=== PATIENT | female | born 1990 | race Caucasian/White ===

== ENCOUNTER 2018-03-01 03:29 | Inpatient (IN) | payer BC ==
[2018-03-01] MEDS ORDERED: Ondansetron PF 4 MG/2 ML Vial IVP PRN ×3 (05:50→08:47)
[2018-03-01] MEDS ORDERED: Bicitra 30 ML UDCUP PO SCH (05:50)
[2018-03-01] MEDS ORDERED: CEFAZOLIN/Water 2 GM/20 ML SYRINGE SLOW IVP SCH (05:50)
[2018-03-01] MEDS ORDERED: Butorphanol Tartrate 1 MG/ML VIAL SLOW IVP PRN ×2 (05:50→20:30)
[2018-03-01] MEDS ORDERED: Promethazine HCl 25 MG/ML VIAL IM PRN ×2 (05:50→08:22)
[2018-03-01] MEDS: Lactated Ringer's 1,000 ML IV SCH ×2 (06:10→07:23)
[2018-03-01] MEDS ORDERED: Oxytocin 10 UNITS/ML VIAL ONE ×3 (06:18→08:14)
[2018-03-01] MEDS ORDERED: Morphine PF 1 MG/ML SYR ONE (06:19)
[2018-03-01] MEDS ORDERED: ePHEDrine/0.9% NaCl/PF SYRINGE 50 mg/10 ml ONE (06:19)
[2018-03-01] MEDS ORDERED: Ondansetron PF 4 MG/2 ML Vial ONE (06:20)
[2018-03-01] MEDS ORDERED: PHENYLEPHRINE-NS 100 MCG/ML 10 ML SYRINGE ONE ×2 (06:21→06:42)
[2018-03-01] MEDS ORDERED: Ketorolac Tromethamine 30 MG/ML VIAL ONE (06:21)
[2018-03-01 06:22] VITALS: BMI 45.7
[2018-03-01 06:23] LABS: Hemoglobin 11.9 g/dL (12.0-16.0); Mean Corpuscular HGB CONC 34.3 g/dL (32.0-36.0); Mean Corpuscular Hemoglobin 29.8 pg (27.0-31.0); Mean Platelet Volume 7.7 fL (7.4-10.4); Platelet Count 248 thou/uL (130-400); RBC Distribution Width 16.2 % (11.5-14.5); Red Blood Cell (RBC) Count 3.98 mill/uL (4.20-5.40); White Blood Cell (WBC) Count 7.4 thou/uL (4.8-10.8)
[2018-03-01 06:58] LABS: Hep B Surf Ag Non-Reactive S/CO (NonReactive)
[2018-03-01 06:59] LABS: Syphilis Antibody Nonreactive (Nonreactive); Syphilis Antibody Index 0.02 S/CO (<1.00 Non-Reactive)
[2018-03-01] MEDS ORDERED: CEFAZOLIN 2 GM/50 ML-DEXTROSE 2 GM in Premix Bag 1 BAG IVPB SCH (07:15)
[2018-03-01] MEDS ORDERED: Meperidine HCl/PF 25 MG/ML VIAL SLOW IVP PRN (08:22)
[2018-03-01] MEDS ORDERED: diphenhydrAMINE 50 MG/ML VIAL IVP PRN (08:22)
[2018-03-01] MEDS ORDERED: L&D-Morphine 4 MG/ML VIAL SLOW IVP PRN (08:22)
[2018-03-01] MEDS ORDERED: Eucerin (Mineral Oil/Petrolatum,White) 30 gm Jar TOP PRN (08:22)
[2018-03-01] MEDS ORDERED: Ondansetron HCl/PF 4 MG/2 ML Vial IVP PRN (08:22)
[2018-03-01] MEDS ORDERED: Promethazine HCl 25 MG SUPP PR PRN (08:22)
[2018-03-01] MEDS ORDERED: Naloxone HCl 0.4 mg/ml Vial IV PRN (08:22)
[2018-03-01] MEDS ORDERED: Naloxone HCl 0.4 mg/ml Vial IVP PRN ×2 (08:22)
[2018-03-01] MEDS ORDERED: Communication Order-Pharmacy FS SCH (08:30)
[2018-03-01] MEDS ORDERED: diphenhydrAMINE 25 MG CAP PO PRN (08:47)
[2018-03-01] MEDS ORDERED: Bisacodyl 10 MG SUPP PR PRN (08:47)
[2018-03-01] MEDS ORDERED: Simethicone Chewable 80 MG TAB PO PRN (08:47)
[2018-03-01] MEDS ORDERED: Zolpidem Tartrate 5 MG TAB PO PRN (08:47)
[2018-03-01] MEDS ORDERED: Acetaminophen 325 MG TAB PO PRN (08:47)
[2018-03-01] MEDS ORDERED: Misoprostol 200 MCG TAB PR PRN (08:47)
[2018-03-01] MEDS ORDERED: Adacel (T-DAP) 0.5 ML SYRINGE IM ONE (08:47)
[2018-03-01] MEDS ORDERED: Lanolin Ointment 7 GM TUBE TOP PRN (08:47)
[2018-03-01] MEDS ORDERED: Lactated Ringer's 1,000 ML IV SCH (09:00)
[2018-03-01] MEDS ORDERED: NS / Oxytocin 40 units/1000ml 1,000 ML IV SCH (09:00)
[2018-03-01] MEDS: Docusate Calcium (SURFAK) 240 MG CAP PO SCH ×2 (13:11→21:33)
[2018-03-01] MEDS: Ferrous Sulfate 325 MG TAB PO SCH (13:11)
[2018-03-01] MEDS: Prenatal Vitamin 1 TAB PO SCH (13:11)
[2018-03-01] MEDS ORDERED: Meperidine HCl/PF 25 MG/ML VIAL IM PRN (20:30)
[2018-03-01] MEDS: Ketorolac Tromethamine 30 MG/ML VIAL IVP PRN (21:33)
--- NOTE | 2018-03-02 01:57 | OP ---
DATE OF PROCEDURE: 03/01/2018 SURGEONS: 1. John Delcid MD. 2. Heather Yusuf DO. NETWORK PROGRAM MANAGER SURGEON: Marycarmen Acosta MD PREOPERATIVE DIAGNOSES: 1. Term intrauterine at 39 weeks. 2. Prior section. 3. Declines trial of labor. POSTOPERATIVE DIAGNOSES: 1. Term intrauterine at 39 weeks. 2. Prior section. 3. Declines trial of labor. PROCEDURE PERFORMED: Repeat low-transverse section. ANESTHESIA: Spinal catheterization. FINDINGS: 1. Minimal scarring and adhesions secondary to previous adhesion prevention measures. 2. Vigorous male infant, 8 pounds 12 ounces, Apgars 8 and 9. 3. Normal uterus, tubes, and ovaries. COMPLICATIONS: None. SPECIMENS REMOVED: Cord blood. BLOOD LOSS: 600 mL. DESCRIPTION OF PROCEDURE: After thorough consent and counseling, Mrs. Chan was taken to the operating room and an adequate level of anesthesia was obtained via spinal catheterization. The patient was prepped and draped in usual sterile fashion for abdominal surgery. A Haynes was placed in the bladder, which was draining clear urine. Attention was then turned to performing the repeat low-transverse section. A Pfannenstiel incision was made and carried sharply to the fascia, which was also sharply incised. The midline was identified and the rectus muscles were retracted laterally. The abdominal peritoneal cavity was entered with the usual safeguards carried out. A retractor was placed and the bladder flap was created on the vesicouterine peritoneum. There was a small window noted on the inferior aspect of the previous incision. Amniotomy was performed and clear amniotic fluid was noted. The infant was vertex presentation in the occiput anterior position high in the pelvis. Head delivered and baby was bulb suctioned on the abdomen. Shoulders and body were then delivered in an atraumatic fashion. The cord was doubly clamped and cut, and the infant was handed to the Neonatology Team in attendance for the delivery. The infant was a vigorous viable male, weighing 8 pounds 12 ounces with Apgars 8 and 9. Cord was doubly clamped and cut cord blood was obtained. The placenta was manually removed from the uterus. The uterus was exteriorized and good tone was noted. The uterine cavity was cleared of any remaining clot and fluid. The low-transverse incision was closed with a running locking ligature of #1 chromic. Several [id number] ligatures of 0 Vicryl suture were placed to facilitate strengthened hemostasis. Good tone was noted. Hemostasis was noted. The posterior cul-de-sac and gutters were cleared of clot and fluid. The uterus, fallopian tubes, and ovaries were inspected and noted to be normal. Seprafilm was applied to the low-transverse incision and to the anterior aspect of the uterus for adhesion prevention. The uterus was returned to the abdomen, and good tone and hemostasis appreciated. Lap, sponge, and needle counts were correct. The peritoneum was then closed with a running ligature of 2-0 Vicryl. The rectus muscles were reapproximated with 2-0 suture. The fascia was closed with two ligatures of 0 Vicryl, which were tied in the midline. Good fascial integrity was appreciated. The incision was irrigated with copious amount of warm normal saline. The subcutaneous tissue was closed with interrupted ligatures of 2-0 plain suture. The skin was closed with a subcuticular stitch of 4-0 Monocryl and dressed with Dermabond. A pressure dressing and ice-packs were subsequently placed. Lap, sponge, and needle counts were correct x3. Estimated blood loss during the surgical procedure was approximately 600 mL. Immediately following the surgery, the patient was taken to the postanesthesia care unit in good condition. We discussed the findings at the time of delivery. Mother and baby doing well postoperatively. Job ID: [id number]
[2018-03-02] MEDS: Ketorolac Tromethamine 30 MG/ML VIAL IVP PRN (03:52)
[2018-03-02 06:36] LABS: Mean Corpuscular HGB CONC 34.1 g/dL (32.0-36.0); Mean Corpuscular Hemoglobin 30.4 pg (27.0-31.0); Mean Platelet Volume 7.2 fL (7.4-10.4); Platelet Count 166 thou/uL (130-400); RBC Distribution Width 16.6 % (11.5-14.5); Red Blood Cell (RBC) Count 3.31 mill/uL (4.20-5.40); White Blood Cell (WBC) Count 7.7 thou/uL (4.8-10.8)
[2018-03-02] MEDS: Docusate Calcium (SURFAK) 240 MG CAP PO SCH ×2 (11:35→21:55)
[2018-03-02] MEDS: HYDROcodone/Acetaminophen 5/325 mg Tablet PO PRN ×3 (11:35→23:55)
[2018-03-02] MEDS: Prenatal Vitamin 1 TAB PO SCH (11:37)
[2018-03-02] MEDS: Ibuprofen 800 MG TAB PO SCH ×2 (14:59→21:55)
[2018-03-02] MEDS: Ferrous Sulfate 325 MG TAB PO SCH ×2 (15:01→19:12)
[2018-03-03] MEDS: HYDROcodone/Acetaminophen 5/325 mg Tablet PO PRN ×3 (04:25→12:39)
[2018-03-03] MEDS: Ibuprofen 800 MG TAB PO SCH (05:42)
[2018-03-03 08:00] VITALS: BP 132/81; TEMP 98.2
[2018-03-03] MEDS: Ferrous Sulfate 325 MG TAB PO SCH (09:01)
[2018-03-03] MEDS: Prenatal Vitamin 1 TAB PO SCH (09:01)
[2018-03-03] MEDS: Docusate Calcium (SURFAK) 240 MG CAP PO SCH (09:02)
== END 2018-03-03 13:31 | disposition home or self-care (01) | DRG 787 ==
LOC: L&D 05:43 → 3SE 13:18 → EDSTATUS 14:35
PROVIDERS: ADMIT Obstetrics & Gynecology; ATTEND Obstetrics & Gynecology
PROC: 10D00Z1 Extraction of Products of Conception, Low, Open Approach (ICD-10-PCS; principal; 2018-03-01)
PROC: 4A0HXCZ Measurement of Products of Conception, Cardiac Rate, External Approach (ICD-10-PCS; 2018-03-01)
DX: O34.211 Maternal care for low transverse scar from previous cesarean delivery (principal); O10.02 Pre-existing essential hypertension complicating childbirth; O24.425 Gestational diabetes mellitus in childbirth, controlled by oral hypoglycemic drugs; O99.284 Endocrine, nutritional and metabolic diseases complicating childbirth; E89.0 Postprocedural hypothyroidism; O99.02 Anemia complicating childbirth; D64.9 Anemia, unspecified; Z3A.39 39 weeks gestation of pregnancy; Z37.0 Single live birth
CPT/HCPCS: 36415; 51702; 85027; 86780; 86850; 86900; 86901; 87340; J1885; J2274; J2405; J2590

== ENCOUNTER 2023-02-07 17:22 | Emergency (ER) | payer BC ==
[~2023-02-07 17:22] MED LIST: Iopamidol-370 76% 500 ML MDV (1 ML CHARGE) ONE
[2023-02-07] MEDS ORDERED: Ondansetron PF 4 MG/2 ML Vial ONE (18:22)
[2023-02-07] MEDS ORDERED: Ketorolac Tromethamine 30 MG/ML VIAL ONE (18:22)
[2023-02-07 18:34] LABS: #Eosinphils 0.1 thou/uL (0.0-0.7); #Monocytes 0.3 thou/uL (0.11-0.59); #Neutrophils 4.8 thou/uL (1.40-6.50); %Basophils 0.3 % (0.0-1.0); %Eosinophils 1.5 % (0.0-10.0); %Lymphocytes 14.4 % (21.0-51.0); %Monocytes 5.6 % (0.0-10.0); Hematocrit 42.6 % (36.0-47.0); Hemoglobin 14.6 g/dL (12.0-16.0); Mean Corpuscular HGB CONC 34.3 g/dL (32.0-36.0); Mean Corpuscular Volume 87.7 fl (78.0-98.0); Mean Platelet Volume 9.6 fL (7.4-10.4); Platelet Count 289 10x3/uL (130-400); RBC Distribution Width 12.3 % (11.5-14.5); Red Blood Cell (RBC) Count 4.86 mill/uL (4.20-5.40); White Blood Cell (WBC) Count 6.1 10x3/uL (4.8-10.8)
[2023-02-07 18:44] LABS: BHCG - Serum Negative (NEGATIVE); Pregs Control Background? CLEAR/WHITE (CLR/WHITE); Pregs Control Bar Appear? YES (CONTROL BAR)
[2023-02-07 18:51] LABS: Bilirubin Negative (Negative); Blood, Urine Negative (Negative); CAUTI Indications for Culture Pelvic or flank pain; Clarity Clear (Clear); Glucose, Urine (Dipstick) Normal (Negative); Ketone, Urine Negative (Negative); Leukocyte Negative Leu/uL (Negative); Mucous/LPF Rare LPF (<2+); Nitrite Negative (Negative); Protein, Urine (Dipstick) Negative (Neg-Trace); RBC/HPF 0-3 HPF (0-3); Specific Gravity, Urine 1.028 (1.002-1.036); Squamous Epithelial 0-3 HPF (0-3); Urobilinogen Normal mg/dL (Less than 2)
[2023-02-07 18:55] LABS: ALT (SGPT) 56 U/L (8-55); AST (SGOT) 34 U/L (5-34); Albumin 4.6 g/dL (3.5-5.0); Alkaline Phosphatase 38 U/L (40-110); Anion Gap 13 mmol/L (10-20); BUN (Urea Nitrogen) 10 mg/dL (7.0-18.7); Bilirubin, Total 0.6 mg/dL (0.2-1.2); Calc. Creatinine Clearance 0 mL/min (70-130); Calcium 9.1 mg/dL (7.8-10.44); Carbon Dioxide 19 mmol/L (22-29); Chloride 108 mmol/L (98-107); Estimated GFR 116; Globulin 2.7 g/dL (2.4-3.5); Glucose 96 mg/dL (70-105); Lipase 13 U/L (8-78); Potassium 3.7 mmol/L (3.5-5.1); Protein, Total 7.3 g/dL (6.0-8.3); Sodium 136 mmol/L (136-145)
[2023-02-07 19:07] LABS: Bacteria/HPF Rare-Few HPF (None Seen); Calcium Oxalate Crystals 2+ HPF (None Seen)
[2023-02-07 19:08] LABS: Urine Culture Reflex No No
== END 2023-02-07 19:35 | disposition home or self-care (01) ==
LOC: ERS 17:22
DX: R10.33 Periumbilical pain (principal); R19.7 Diarrhea, unspecified; R11.2 Nausea with vomiting, unspecified; I10 Essential (primary) hypertension; Z79.899 Other long term (current) drug therapy
CPT/HCPCS: 74177; 80053; 81001; 83690; 84703; 85025; 96361; 96374; 96375; J1885; J2405; Q9967